=== PATIENT | female | born 1950 | race Asian ===

== ENCOUNTER → 2017-04-05 | Outpatient (CLI) | payer OTHER ==
[~2017-04-05] MED LIST: ACET325T21 PO; AZIT500T77 PO; CALC200T10 PO; CEFD300C37 PO; DILT90CA PO; INDO75CA3 PO; PANT40TA5 PO; SUCR1TAB PO
== END | disposition home or self-care (01) ==
LOC: CFH 12:34
PROVIDERS: ATTEND Physician Assistant
DX: Z12.31 Encounter for screening mammogram for malignant neoplasm of breast (principal)
CPT/HCPCS: G0202